=== PATIENT | male | born 1965 | race Caucasian/White ===

== ENCOUNTER → 2020-03-30 | Outpatient (CLI) | payer BC ==
--- NOTE | 2020-03-30 16:26 | RAD ---
EXAM: Left knee, 3 views. HISTORY: Pain. COMPARISON: None. FINDINGS: 3 views of the left knee are obtained. There is no fracture, dislocation or subluxation. There is no joint effusion. There is a small bone island within the distal femur. IMPRESSION: No acute osseous finding. Electronically signed by: Johanna Patricio MD (03/30/2020 4:24 PM) [id number]
== END ==
LOC: DXRAD 15:11
PROVIDERS: ATTEND Physician Assistant Medical
DX: M25.562 Pain in left knee (principal)
CPT/HCPCS: 73562